=== PATIENT | male | born 1990 | race Caucasian/White ===

== ENCOUNTER 2018-06-12 00:33 | Emergency (ER) | payer MEDICAID ==
[2018-06-12 00:39] VITALS: BP 131/89
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
[2018-06-12] MEDS ORDERED: CEPHALEXIN 500 MG CAP PO ONE (01:11)
[2018-06-12] MEDS ORDERED: CEPHALEXIN 500MG PREPACK#4 BTL TAKEHOME ONE (01:11)
== END 2018-06-12 01:37 | disposition home or self-care (01) ==
PROC: 2W3EX1Z Immobilization of Right Hand using Splint (ICD-10-PCS; principal; 2018-06-12)
DX: S62.336A Displaced fracture of neck of fifth metacarpal bone, right hand, initial encounter for closed fracture (principal); S61.236A Puncture wound without foreign body of right little finger without damage to nail, initial encounter; F17.200 Nicotine dependence, unspecified, uncomplicated; W22.8XXA Striking against or struck by other objects, initial encounter